=== PATIENT | female | born 1975 | race Caucasian/White ===

== ENCOUNTER → 2018-12-12 12:02 | Outpatient (CLI) | payer OTHER, MEDICAID, SELFPAY ==
--- NOTE | 2018-12-12 | DI.MG.S_ITS ---
BILATERAL DIGITAL SCREENING MAMMOGRAM 3D/2D WITH CAD: 12/12/2018 CLINICAL: Routine screening. Comparison is made to exams dated: 10/30/2017 mammogram and 10/21/2017 mammogram - [facility]. The tissue of both breasts is heterogeneously dense. This may lower the sensitivity of mammography. Current study was also evaluated with a Computer Aided Detection (CAD) system. There is an asymmetry in the left breast at 4 o'clock middle depth. There is possible architectural distortion associated with the asymmetry. No other significant masses, calcifications, or other findings are seen in either breast. IMPRESSION: INCOMPLETE: NEEDS ADDITIONAL IMAGING EVALUATION The asymmetry in the left breast is indeterminate. Additional views with possible ultrasound are recommended. This exam was interpreted at Station ID: [id number]. NOTE: For mammograms, a report in lay terms will be sent to the patient. Approximately 15% of breast malignancies will not be visualized mammographically. In the management of a palpable breast mass, a negative mammogram must not discourage biopsy of a clinically suspicious lesion. Electronically Signed By: Ani Miller M.D. lk/:12/12/2018 14:46:39 letter sent: Additional Imaging Needed ACR BI-RADS Category 0: Incomplete [id number]
== END ==
PROVIDERS: PCP Nurse Practitioner Family; Visit Provider Nurse Practitioner Family
DX: Z12.31 Encounter for screening mammogram for malignant neoplasm of breast (principal)
CPT/HCPCS: 77063; 77067

== ENCOUNTER → 2019-01-21 13:59 | Outpatient (CLI) | payer OTHER, MEDICAID, SELFPAY ==
--- NOTE | 2019-01-21 | DI.MG.S_ITS ---
UNILATERAL LEFT DIGITAL DIAGNOSTIC MAMMOGRAM 3D/2D WITH ADDITIONAL VIEWS: 01/21/2019 CLINICAL: Additional evaluation requested from prior study. Comparison is made to exams dated: 12/12/2018 mammogram, 10/30/2017 mammogram, and 10/21/2017 mammogram - [facility]. The tissue of left breast is heterogeneously dense. This may lower the sensitivity of mammography. Previously noted asymmetry in the left breast at 4 o'clock middle depth with possible architectural distortion on comparison screening mammogram of 12/12/2018 resolves with additional views and likely represented superimposition of benign anatomic tissues. IMPRESSION: INCOMPLETE: NEEDS ADDITIONAL IMAGING EVALUATION Previously noted asymmetry in the left breast at 4 o'clock middle depth with possible architectural distortion on comparison screening mammogram resolves with additional views and likely represented superimposition of benign anatomic tissues. A targeted ultrasound is recommended and will be performed immediately following this exam. This exam was interpreted at Station ID: [id number]. NOTE: For mammograms, a report in lay terms will be sent to the patient. Approximately 15% of breast malignancies will not be visualized mammographically. In the management of a palpable breast mass, a negative mammogram must not discourage biopsy of a clinically suspicious lesion. Electronically Signed By: Chinedu Torres M.D. ecl/:01/21/2019 15:19:56 letter sent: Additional Imaging Needed ACR BI-RADS Category 0: Incomplete [id number]
--- NOTE | 2019-01-21 | DI.US.S_ITS ---
LIMITED ULTRASOUND OF LEFT BREAST: 01/21/2019 CLINICAL: Additional evaluation requested from prior study. Comparison is made to exams dated: 01/21/2019 mammogram, 12/12/2018 mammogram, 10/30/2017 ultrasound, 10/30/2017 mammogram, and 10/21/2017 mammogram - [facility]. Real-time and Doppler ultrasound of the left breast outer aspect were performed. Maya scale images of the real-time examination were reviewed. No underlying breast mass or abnormality is identified. There is no ultrasound correlate for the previously noted asymmetry in the left breast at 4 o'clock middle depth with possible architectural distortion on comparison screening mammograms of 12/12/2018, which also resolved on additional diagnostic mammogram views performed earlier today. IMPRESSION: NEGATIVE There is no sonographic evidence of malignancy in the imaged portions of the lateral left breast. Return to annual screening mammography schedule is recommended. The patient is advised to monitor her breasts and to return sooner for re-evaluation should she feel anything grow or change. This exam was interpreted at Station ID: [id number]. Electronically Signed By: Chinedu Torres M.D. ecl/:01/21/2019 15:22:48 letter sent: Normal Exam Ultrasound BI-RADS: 1 Negative
== END ==
PROVIDERS: PCP Nurse Practitioner Family; Visit Provider Nurse Practitioner Family
DX: R92.8 Other abnormal and inconclusive findings on diagnostic imaging of breast (principal)
CPT/HCPCS: 76642; 77065; G0279